=== PATIENT | female | born 1935 | race Caucasian/White ===

== ENCOUNTER 2017-12-04 17:09 | Emergency (ER) | payer MEDICARE ==
[2017-12-04] MEDS ORDERED: 0.9 % SODIUM CHLORIDE 1000ML 1,000 ML IV PRN (17:26)
[2017-12-04 17:35] LABS: BASO % 0.3 % (0-6); EOS % 1.4 % (0-6); GRAN % 58.7 % (47-80); HEMATOCRIT 42.4 % (35.0-47.0); HEMOGLOBIN 13.8 gm/dl (11.6-16.0); LYMPH % 31.1 % (16-45); MEAN CORPUSCULAR HEMOGLOBIN 30.3 pg (27-33); MEAN CORPUSCULAR HGB CONC 32.5 g/dl (32-36); MEAN PLATELET VOLUME 11.4 fl (7.4-10.4); MONO % 8.5 % (0-9); PLATELET COUNT 215 K/uL (130-400); RED BLOOD COUNT 4.56 M/uL (3.80-5.40); RED CELL DISTRIBUTION WIDTH 15.2 % (11.5-14.5); WHITE BLOOD COUNT W/O DIFF 9.3 K/uL (4.2-12.2)
--- NOTE | 2017-12-04 17:38 | Emergency Department Record ---
History of Present Illness - General Chief Complaint: Fall Injury Stated Complaint: FALL INJURY Time Seen by Provider: 12/04/17 17:26 Source: Patient, RN notes reviewed Mode of Arrival: Ambulatory - History of Present Illness Initial Comments: patient got dizzy at the [employer] store and fell hitting the back of her head and history of atrial fib and on coumadin and she has a small laceration back of her head. complaining of right hip pain. MD Complaint: Fall Onset/Timin -: Minutes(s) Fall From: Standing Fall Witnessed: Yes, by family Place Fall Occurred: Other Loss of Consciousness: Unsure, Second(s) Prolonged Down Time?: No Symptoms Prior to Fall: Dizziness, Lightheadedness Location: Head Severity: Moderate Severity scale (1-10): 2 Quality: Aching - [place] Coma Scale Eye Response: (4) Open spontaneously Motor Response: (6) Obeys commands Verbal Response: (5) Oriented [place] Total: 15 - Related Data Home Medications Medication Instructions Recorded Confirmed Last Taken Allopurinol 100 mg PO DAILY 12/04/17 12/04/17 1 Day Ago ~12/03/17 Carvedilol [Coreg] 12.5 mg PO DAILY 12/04/17 12/04/17 1 Day Ago ~12/03/17 Losartan/Hydrochlorothiazide 1 each PO DAILY 12/04/17 12/04/17 1 Day Ago [Hyzaar 100-12.5 Tablet] ~12/03/17 Metformin HCl [Glucophage] 1,000 mg PO DAILY 12/04/17 12/04/17 1 Day Ago ~12/03/17 Warfarin Sodium [Coumadin] 2 mg PO ASDIR 12/04/17 12/04/17 1 Day Ago ~12/03/17 Allergies Allergy/AdvReac Type Severity Reaction Status Date / Time No Known Drug Allergies Allergy Verified 12/04/17 17:25 Travel Screening - Travel/Exposure Within Last 30 Days Have you traveled within the last 30 days?: No - Travel/Exposure Within Last Year Have you traveled outside the [place] in the last year?: No - Additonal Travel Details Have you been exposed to anyone with a communicable illness?: No - Travel Symptoms Symptom Screening: None Review of Systems Reviewed: No additional complaints except as noted below Constitutional: Reports: As per HPI. Denies: Chills, Fever, Malaise, Night sweats, Weakness, Weight change Eyes: Reports: As per HPI. Denies: Eye discharge, Eye pain, Photophobia, Vision change ENT: Reports: As per HPI. Denies: Congestion, Dental pain, Ear pain, Epistaxis , Hearing loss, Throat pain Respiratory: Reports: As per HPI. Denies: Cough, Dyspnea, Hemoptysis, Stridor, Wheezes Cardiovascular: Reports: As per HPI, Arrhythmia. Denies: Chest pain, Dyspnea on exertion, Edema, Murmurs, Orthopnea, Palpitations, Paroxysmal nocturnal dyspnea, Rheumatic Fever, Syncope Endocrine: Reports: As per HPI. Denies: Fatigue, Heat or cold intolerance, Polydipsia, Polyuria Gastrointestinal: Reports: As per HPI. Denies: Abdominal pain, Constipation, Diarrhea, Hematemesis, Hematochezia, Melena, Nausea, Vomiting Genitourinary: Reports: As per HPI. Denies: Abnormal menses, Discharge, Dyspareunia, Dysuria, Frequency, Hematuria, Incontinence, Retention, Urgency Musculoskeletal: Reports: As per HPI. Denies: Arthralgia, Back pain, Gout, Joint swelling, Myalgia, Neck pain Skin: Reports: As per HPI. Denies: Bruising, Change in color, Change in hair/ nails, Lesions, Pruritus, Rash Neurological: Reports: As per HPI. Denies: Abnormal gait, Confusion, Headache, Numbness, Paresthesias, Seizure, Tingling, Tremors, Vertigo, Weakness Psychiatric: Reports: As per HPI. Denies: Anxiety, Auditory hallucinations, Depression, Homicidal thoughts, Suicidal thoughts, Visual hallucinations Hematological/Lymphatic: Reports: As per HPI. Denies: Anemia, Blood Clots, Easy bleeding, Easy bruising, Swollen glands Past Medical History - SOCIAL HISTORY Smoking Status: Never smoker Alcohol Use: None Drug Use: None - RESPIRATORY Hx Respiratory Disorders: No - CARDIOVASCULAR Hx Abnormal EKG: Yes Hx Hypertension: Yes Hx Irregular Heartbeat: Yes (A-fib) - NEURO Hx Neuro Disorders: No - GI Hx GI Disorders: No - Hx Genitourinary Disorders: No - ENDOCRINE Hx Endocrine Disorders: Yes Hx Diabetes: Yes (NIDDM) Hx Thyroid Disease: No - MUSCULOSKELETAL Hx Arthritis: Yes Hx Gout: Yes - PSYCH Hx Psych Problems: No - HEMATOLOGY/ONCOLOGY Hx Bruising: Yes (Coumadin) Hx Cancer: Yes (2006 left breast) Family Medical History Any Significant Family History?: Yes Physical Exam - General General Appearance: Alert, Oriented x3, Cooperative, No acute distress - Head Head exam: Normal inspection - Eye Eye exam: Normal appearance, PERRL Pupils: Normal accommodation - ENT ENT exam: Normal exam, Mucous membranes moist, Normal external ear exam, Normal orophraynx, TM's normal bilaterally Ear exam: Normal external inspection. negative: External canal tenderness Nasal Exam: Normal inspection. negative: Discharge, Sinus tenderness Mouth exam: Normal external inspection, Tongue normal Teeth exam: Normal inspection. negative: Dental caries Throat exam: Normal inspection. negative: Tonsillar erythema, Tonsillar exudate - Neck Neck exam: Normal inspection, Full ROM. negative: Tenderness - Respiratory Respiratory exam: Normal lung sounds bilaterally. negative: Respiratory distress - Cardiovascular Cardiovascular Exam: Normal heart sounds, Bradycardia - GI/Abdominal GI/Abdominal exam: Soft, Normal bowel sounds. negative: Tenderness - Rectal Rectal exam: Deferred - exam: Deferred - Extremities Extremities exam: Normal inspection, Full ROM, Normal capillary refill. negative: Tenderness - Back Back exam: Reports: Normal inspection, Full ROM. 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 Jim GARCIA at [facility] and will talk to the trauma Dr. blakely 12/04/17 18:54 Reevaluation #5: discussed case with Dr. Noland and she requested one gram of TXA 12/04/17 19:16 Medical Decision Making - Data Complexity MDM Data: Labs Ordered and/or Reviewed (inr 1.8), X-Ray Ordered and/or Reviewed (right temporal large area of temporal encephalomalacia from old infarction, small cephalohematoma in the occipital area), EKG Ordered and/or Reviewed ( bradycardia) - Lab Data Result diagrams: 12/04/17 17:30 12/04/17 17:30 Disposition Clinical Impression: Bradycardia, History of atrial fibrillation Fall Qualifiers: Encounter type: initial encounter Qualified Code(s): W19.XXXA - Unspecified fall, initial encounter Head trauma Qualifiers: Encounter type: initial encounter Qualified Code(s): S09.90XA - Unspecified injury of head, initial encounter Laceration of scalp Qualifiers: Encounter type: initial encounter Qualified Code(s): S01.01XA - Laceration without foreign body of scalp, initial encounter Disposition: Acute Care Hospital Transfer Condition: (2) Stable Forms: Patient Portal Access Time of Disposition: 18:20 Quality - Quality Measures Quality Measures: N/A - Blood Pressure Screening Does Patient Have Any of the Following: No Blood Pressure Classification: Hypertensive Reading Systolic Measurement: 175 Diastolic Measurement: 101 Screening for High Blood Pressure: < First Hypertensive BP, F/U Documented > [ [id number]] First Hypertensive Follow-up Interventions: Referral to alternative/primary care provider.
[2017-12-04 17:49] LABS: INR 1.8; PARTIAL THROMBOPLASTIN TIME 31.5 SECONDS (24.5-39.1); PROTHROMBIN TIME (PATIENT) 19.2 SECONDS (9.5-12.1)
[2017-12-04 17:55] LABS: ALBUMIN 4.1 g/dL (4.0-5.0); ALKALINE PHOSPHATASE 75 U/L (35-104); ALT/SGPT 11 U/L (<33); AST/SGOT 31 U/L (10.0-35.0); BLOOD UREA NITROGEN 23 mg/dL (8-23); EST GLOMERULAR FILTRATION RATE 56 mL/min; GLUCOSE,RANDOM 174 mg/dL (74-109); TOTAL PROTEIN 7.6 g/dL (6.6-8.7)
[2017-12-04 17:57] LABS: BILIRUBIN,DIRECT < 0.2 mg/dL (0-0.3); CKMB 2.3 ng/mL (<3.77)
[2017-12-04] MEDS ORDERED: TRANEXAMIC ACID 1,000 MG in 0.9 % SODIUM CHLORIDE 100ML 100 ML IV ONE (19:16)
--- NOTE | 2017-12-05 20:45 | CT SCAN REPORT ---
EXAM: CT SCAN HEAD WO CONTRAST HISTORY: FALL WITH TRAUMA TO BACK OF HEAD. TECHNIQUE: Routine noncontrast CT examination of the head. COMPARISON: No prior imaging of the head available for comparison. FINDINGS: There is mild dilatation of the subarachnoid spaces consistent with generalized atrophy. The ventricles are not grossly enlarged. There is a moderate-sized area of hypodensity in the lateral right temporal lobe superiorly measuring 7.5 x 2.7 x 2.3 cm. There is associated volume loss. This is consistent with encephalomalacia, likely from old infarct. It extends posteriorly to the parietooccipital region. In addition, there is mild white matter lucency scattered in each cerebral hemisphere. These are nonspecific but likely areas of chronic small vessel ischemia. No other area of abnormally increased or decreased attenuation is noted throughout the brain substance. No definite abnormal extraaxial fluid collection is seen, nor is there skull fracture identified. There is a small cephalohematoma in the posterior parietal region centered slightly left of midline measuring approximately 3 cm in diameter and 8 mm in thickness. There is a small retention cyst or less likely polyp in the right sphenoid sinus. The visualized paranasal sinuses and mastoid air cells are otherwise clear. The orbits as visualized are unremarkable. There is incomplete osseous fusion of the posterior arch of C1. This is developmental. IMPRESSION: 1. 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 2. NO DEFINITE CT EVIDENCE OF ACUTE MAJOR VESSEL INFARCT, INTRACRANIAL HEMORRHAGE, MASS, NOR SKULL FRACTURE. 3. MILD GENERALIZED ATROPHY. 4. MILD WHITE MATTER LUCENCIES SCATTERED IN EACH CEREBRAL HEMISPHERE ARE NONSPECIFIC BUT LIKELY AREAS OF CHRONIC SMALL VESSEL ISCHEMIA. 5. SMALL CEPHALOHEMATOMA IN THE POSTERIOR PARIETAL REGION CENTERED SLIGHTLY LEFT OF MIDLINE. JOB NUMBER: [id number] [facility]
--- NOTE | 2017-12-05 20:50 | RADIOLOGY REPORT ---
EXAM: CHEST 2 VIEWS HISTORY: FALL BACKWARDS HITTING BACK OF HEAD. TECHNIQUE: Semierect AP and lateral views of the chest are obtained. COMPARISON: None. FINDINGS: The cardiac silhouette is mildly enlarged. No gross pulmonary venous hypertension is seen. There are questionable minor mixed opacities in the perihilar lungs. Diagnostic considerations include atelectasis, infiltrate, or edema. A component of chronic interstitial change would be difficult to exclude. The lungs and pleural spaces are otherwise clear. There are degenerative changes scattered within the visualized spine. Postsurgical changes are noted in the upper abdomen, likely relating to prior cholecystectomy. IMPRESSION: 1. MILD CARDIOMEGALY WITHOUT GROSS PULMONARY VENOUS HYPERTENSION. 2. PATCHY MILD MIXED OPACITIES IN THE PERIHILAR LUNGS QUESTIONED. DIAGNOSTIC CONSIDERATIONS INCLUDE: ATELECTASIS, EDEMA, OR INFILTRATE. A COMPONENT OF CHRONIC INTERSTITIAL CHANGE IS ALSO CONSIDERED. COMPARISON TO PRIOR EXAMINATIONS , IF ANY EXIST, IS RECOMMENDED. 3. NO GROSS LUNG CONSOLIDATION. JOB NUMBER: [id number] [facility]
--- NOTE | 2017-12-05 20:55 | RADIOLOGY REPORT ---
EXAM: HIP,UNILAT, 2-3 VIEW RIGHT HISTORY: CHRONIC RIGHT HIP PAIN, FALL TODAY. TECHNIQUE: An AP view of the pelvis is obtained as well as AP and frog-leg lateral views of the right hip. COMPARISON: None. ENCOUNTER: Initial. FINDINGS: There is normal bone mineralization. No acute fracture, dislocation, or destructive bone lesion is seen. There are mild to moderate degenerative changes of the right hip and mild degenerative changes of the left hip. There are mild degenerative changes of the sacroiliac joints. Mild to moderate degenerative changes of the lower lumbar spine. There is diffuse atherosclerosis. IMPRESSION: NO ACUTE FRACTURE NOR DISLOCATION. DEGENERATIVE CHANGES. JOB NUMBER: [id number] [facility]
--- NOTE | 2017-12-05 21:10 | CT SCAN REPORT ---
EXAM: CT SCAN CERVICAL SPINE WO CONTRAST HISTORY: FELL BACKWARDS AND HIT BACK OF HEAD. COUMADIN THERAPY. TECHNIQUE: Thin-collimation helical CT examination of the cervical spine is performed in the axial plane without intravenous contrast. Coronal and sagittal reformatted images are generated and reviewed. COMPARISON: No prior imaging of the cervical spine available for comparison at this time. FINDINGS: There is reversal of the normal cervical lordosis centered at the C4 level. In addition, there is minimal retrolisthesis of C5 on C6 as well as C6 on C7. The vertebral bodies are otherwise normal in alignment and height. No acute fracture, suspicious subluxation, or prevertebral soft tissue swelling. There is incomplete osseous fusion of the posterior arch of C1, a developmental variant. There are moderate hypertrophic degenerative changes of the atlantodental joint. Multilevel degenerative disc/degenerative endplate changes are present. A small central disc spur complex at the C2-3 level causes ventral sac flattening and in association with posterior ligamentous buckling causes borderline central canal stenosis. Similarly, there is a central disc spur complex at the C3-C4 level causing ventral sac flattening and in association with posterior ligamentous buckling causes mild central canal stenosis. Posterior disc bulging and endplate spurring at the C5-C6 level causes mild to moderate central canal stenosis and there is mild central canal stenosis suspected at the C6-C7 level due to broad-based disc bulging and endplate spurring. Multilevel bilateral neural foraminal narrowing is suggested secondary to uncovertebral joint spurring and facet arthropathy. This is most pronounced on the right. There is a relative mosaic pattern of the lung apices. This can be seen with obstructive small airways disease, atelectasis, or edema. Pneumonitis is less likely. The thyroid gland is heterogeneous and there is likely a small hypodense nodule in the inferolateral left thyroid lobe measuring 5 mm. If clinically warranted, this could be further evaluated with thyroid ultrasound. Mild to moderate atherosclerotic calcification of the carotid bifurcations. No definite cervical mass nor adenopathy. IMPRESSION: 1. NO ACUTE FRACTURE, SUSPICIOUS SUBLUXATION, OR PREVERTEBRAL SOFT TISSUE SWELLING. 2. MULTILEVEL DEGENERATIVE CHANGES, DETAILED ABOVE. 3. MILD REVERSAL OF THE NORMAL CERVICAL LORDOSIS CENTERED AT THE C4-C5 LEVEL. MINIMAL RETROLISTHESIS OF C5 ON C6 WELL C6 ON C7, LIKELY RELATING TO DEGENERATIVE DISC AND FACET DEGENERATIVE CHANGES. 4. NOT MENTIONED ABOVE IS MILD MUCOSAL THICKENING AND PROBABLE RETENTION CYST FORMATION WITHIN THE RIGHT SPHENOID SINUS. [facility]: [id number] [facility]
== END 2017-12-04 19:42 | disposition short-term general hospital (02) ==
LOC: ER 17:09
DX: R00.0 Tachycardia, unspecified (principal); S01.01XA Laceration without foreign body of scalp, initial encounter; S00.03XA Contusion of scalp, initial encounter; R42 Dizziness and giddiness; M25.551 Pain in right hip; E11.9 Type 2 diabetes mellitus without complications; I48.91 Unspecified atrial fibrillation; I10 Essential (primary) hypertension; Z79.01 Long term (current) use of anticoagulants; Z79.84 Long term (current) use of oral hypoglycemic drugs; W18.09XA Striking against other object with subsequent fall, initial encounter; Y92.512 Supermarket, store or market as the place of occurrence of the external cause
CPT/HCPCS: 99285 ×2; 96374; 85025; 85730; 85610; 80076; 82553; 80048; 84484; 71046; 73502; 72125; 70450; 93005; 93010; J3490